=== PATIENT | male | born 1990 | race American Indian/Alaskan Native ===

== ENCOUNTER → 2017-08-01 | Outpatient (CLI) | payer OTHER ==
[~2017-08-01] MED LIST: (None)20 M1 PO; ALBU90OI INH; ALBU90OI6 INH; ALBU90OI61; ALBU90OI61 INH; Albuterol2.5 MG/0.5 INH; CIPR500 PO; CLARITIN10 MG PO; CRUTCH4 XX; DOXY100 PO; Duoneb 2.5-0.5 M3 ML INH; ERYT1OIN BOTHEYES; HYDACE5 PO; HYDHCL25 PO; IBUP800 PO; Klonopin0.5 MG PO; LORPSEER12; LORPSEER24 PO; MIRT15 PO; MONT10T PO; PERM5TC TOP; PRED10 PO; PRED20 PO; Percocet 5-3251 EACH PO; RXTRAM50 PO; Robaxin-750750 MG PO; TRAM50 PO; VENL25 PO; Ventolin Soln3 ML INH; Ventolin5 MG/1 ML INH; ZADITOR5 ML BOTHEYES
[2017-08-01 18:24] LABS: BASOPHILS ABSOLUTE AUTO 0.02 K/mm3 (0.00-0.23); BASOPHILS PERCENT AUTO 0 % (0-2); EOSINOPHILS ABSOLUTE AUTO 0.14 K/mm3 (0.00-0.68); EOSINOPHILS PERCENT AUTO 3 % (0-6); Hematocrit 46.7 % (37.0-53.0); Hemoglobin 16.1 g/dL (13.5-17.5); IMMATURE GRAN ABSOLUTE AUTO 0.01 K/mm3 (0.00-0.10); IMMATURE GRAN PERCENT AUTO 0 % (0-1); LYMPHOCYTES ABSOLUTE AUTO 1.86 K/mm3 (0.84-5.20); LYMPHOCYTES PERCENT AUTO 35 % (21-46); MONOCYTES ABSOLUTE AUTO 0.46 K/mm3 (0.16-1.47); MONOCYTES PERCENT AUTO 9 % (4-13); Mean Corpuscular HGB 30.4 pg (26.0-34.0); Mean Corpuscular HGB Conc 34.5 g/dL (31.5-36.5); Mean Corpuscular Volume 88 fL (80-100); Mean Platelet Volume 10.9 fL (9.1-12.4); NEUTROPHILS ABSOLUTE AUTO 2.81 K/mm3 (1.96-9.15); NEUTROPHILS PERCENT AUTO 53 % (41-73); Platelet Count 257 K/mm3 (150-400); RDW Coefficient Variation 12.9 % (11.7-14.2); RDW Standard Deviation 41.6 fL (35.1-46.3)
[2017-08-01 19:14] LABS: Alanine Aminotransfer (ALT/SGP 30 U/L (12-78); Albumin, Blood 4.4 g/dL (3.4-5.0); Albumin/Globulin Ratio 1.3 (0.8-1.8); Alk Phos 78 U/L (50-136); Anion Gap 9 mmol/L (6-16); Aspartate Aminotrans (AST/SGOT 25 U/L (12-37); Bilirubin, Total 0.5 mg/dL (0.1-1.0); Blood Urea Nitrogen 7 mg/dL (8-24); Bun/Creatinine Ratio 8.2 (12.0-20.0); CO2, Blood 23 mmol/L (21-32); Calcium, Blood 8.9 mg/dL (8.5-10.1); Chloride, Blood 107 mmol/L (98-108); Creatinine, Blood 0.85 mg/dL (0.60-1.20); Free Thyroxine 1.01 ng/dL (0.70-1.60); Globulin, Blood 3.3 g/dL (2.2-4.0); Glomerular Filtration Rate >60 (60-); Glucose, Blood 87 mg/dL (70-99); Potassium, Blood 4.6 mmol/L (3.5-5.5); Sodium, Blood 139 mmol/L (136-145); Total Protein, Blood 7.7 g/dL (6.4-8.2)
[2017-08-01 19:18] LABS: Triiodothyronine, Free 3.67 pg/mL (2.18-3.98)
== END ==
LOC: LAB 09:30 → LAB SHORT 09:30
PROVIDERS: Nurse Practitioner Family
DX: E55.9 Vitamin D deficiency, unspecified (principal); F41.9 Anxiety disorder, unspecified; R00.0 Tachycardia, unspecified; R61 Generalized hyperhidrosis
CPT/HCPCS: 80053; 84439; 84443; 84481; 85025

== ENCOUNTER → 2017-08-02 | Outpatient (CLI) | payer OTHER | END | disposition home or self-care (01) | LOC: LAB 09:00 → LAB SHORT 09:00 | DX: E55.9 Vitamin D deficiency, unspecified (principal) | CPT/HCPCS: 82306 ==

== ENCOUNTER 2017-08-14 11:37 | Emergency (ER) | payer OTHER ==
[~2017-08-14] VITALS: Ht 193 cm; Wt 81.7 kg
[~2017-08-14 11:37] MED LIST changes: -ALBU90OI61 INH; -CLARITIN10 MG PO; -CRUTCH4 XX; -ERYT1OIN BOTHEYES; -Klonopin0.5 MG PO; -MIRT15 PO; -MONT10T PO; -VENL25 PO; -ZADITOR5 ML BOTHEYES
[2017-08-14] MEDS ORDERED: ALBU90OI INH (13:26)
[2018-02-13] MEDS ORDERED: CRUTCH4 XX (14:30)
[2018-02-13] MEDS ORDERED: Percocet 5-3251 EACH PO (14:31)
== END 2017-08-14 13:40 | disposition home or self-care (01) ==
LOC: ER 11:37
DX: J45.901 Unspecified asthma with (acute) exacerbation (principal); F41.9 Anxiety disorder, unspecified; Z88.0 Allergy status to penicillin; Z88.5 Allergy status to narcotic agent; Z79.899 Other long term (current) drug therapy; J45.909 Unspecified asthma, uncomplicated; F17.200 Nicotine dependence, unspecified, uncomplicated
CPT/HCPCS: 71046; 94640; 96374; 99283; J2930

== ENCOUNTER 2017-11-14 13:41 | Emergency (ER) | payer OTHER ==
[~2017-11-14] VITALS: Ht 195.6 cm; Wt 80.3 kg
== END 2017-11-14 14:50 | disposition home or self-care (01) ==
LOC: ER 13:41
DX: F41.9 Anxiety disorder, unspecified (principal); Z88.0 Allergy status to penicillin; Z88.5 Allergy status to narcotic agent; Z79.899 Other long term (current) drug therapy; J45.909 Unspecified asthma, uncomplicated; Z87.891 Personal history of nicotine dependence
CPT/HCPCS: 99283

== ENCOUNTER 2017-12-10 11:49 | Observation (INO) | payer OTHER ==
[~2017-12-10] VITALS: Ht 193 cm; Wt 79.4 kg
[2017-12-10] MEDS ORDERED: VENL25 PO (13:40)
[2017-12-10] MEDS ORDERED: MONT10T PO (13:40)
[2017-12-10 14:23] LABS: BASOPHILS ABSOLUTE AUTO 0.06 K/mm3 (0.00-0.23); BASOPHILS PERCENT AUTO 1 % (0-2); EOSINOPHILS ABSOLUTE AUTO 0.06 K/mm3 (0.00-0.68); EOSINOPHILS PERCENT AUTO 1 % (0-6); Hematocrit 42.8 % (37.0-53.0); Hemoglobin 14.8 g/dL (13.5-17.5); IMMATURE GRAN ABSOLUTE AUTO 0.02 K/mm3 (0.00-0.10); IMMATURE GRAN PERCENT AUTO 0 % (0-1); LYMPHOCYTES ABSOLUTE AUTO 1.73 K/mm3 (0.84-5.20); LYMPHOCYTES PERCENT AUTO 18 % (21-46); MONOCYTES ABSOLUTE AUTO 0.63 K/mm3 (0.16-1.47); MONOCYTES PERCENT AUTO 7 % (4-13); Mean Corpuscular HGB Conc 34.6 g/dL (31.5-36.5); Mean Corpuscular Volume 87 fL (80-100); Mean Platelet Volume 9.5 fL (9.1-12.4); NEUTROPHILS PERCENT AUTO 74 % (41-73); Platelet Count 296 K/mm3 (150-400); RDW Coefficient Variation 12.2 % (11.7-14.2); RDW Standard Deviation 38.8 fL (35.1-46.3); Red Blood Cell Count 4.93 M/mm3 (4.30-5.90)
[2017-12-10 15:04] LABS: Alanine Aminotransfer (ALT/SGP 28 U/L (12-78); Albumin, Blood 4.4 g/dL (3.4-5.0); Albumin/Globulin Ratio 1.2 (0.8-1.8); Alk Phos 76 U/L (50-136); Anion Gap 9 mmol/L (6-16); Aspartate Aminotrans (AST/SGOT 26 U/L (12-37); Bilirubin, Total 0.5 mg/dL (0.1-1.0); Blood Urea Nitrogen 9 mg/dL (8-24); Bun/Creatinine Ratio 10.8 (12.0-20.0); CO2, Blood 27 mmol/L (21-32); Calcium, Blood 9.2 mg/dL (8.5-10.1); Chloride, Blood 106 mmol/L (98-108); Creatinine, Blood 0.84 mg/dL (0.60-1.20); Ethanol (Alcohol), Blood, Med <3 mg/dL; Globulin, Blood 3.7 g/dL (2.2-4.0); Glomerular Filtration Rate >60 (60-); Glucose, Blood 95 mg/dL (70-99); Potassium, Blood 3.6 mmol/L (3.5-5.5); Salicylate <1.7 mg/dL (2.8-20.0); Sodium, Blood 142 mmol/L (136-145); Total Protein, Blood 8.1 g/dL (6.4-8.2)
[2017-12-10 15:23] LABS: Acetaminophen, Random <2.0 ug/mL (10.0-30.0)
[2017-12-10] MEDS ORDERED: Klonopin0.5 MG PO (18:22)
[2017-12-10] MEDS ORDERED: MIRT15 PO (18:22)
[2017-12-10 19:15] LABS: Source, Urine Clean Catch
[2017-12-10 19:17] LABS: Bilirubin, Urine Neg (Neg); Blood, Urine Neg (Neg); Glucose Qualitative, Urine Neg (Neg); Ketones, Urine Neg (Neg); Leukocyte Esterase, Urine Neg (Neg); Nitrite, Urine Neg (Neg); Protein, Urine Neg (Neg); Urobilinogen, Urine NORM (Normal)
[2017-12-10 19:23] LABS: Appearance, Urine Hazy (Clear); Color, Urine Yellow (P-Yellow)
[2017-12-10 19:24] LABS: Amorphous Mod (0-Heavy); Bacteria Few /hpf; Red Blood Cells, Urine 0-2 /hpf (0-2); Squamous Epithelial Cells Not Seen /hpf (Few); White Blood Cells, Urine 0-2 /hpf (0-5)
[2017-12-10 19:31] LABS: U Amphetamine Screen Not Detected; U Barbituate Screen Not Detected; U Benzodiazapine Screen Not Detected; U Buprenorphine Screen Not Detected; U Cannabinoids Screen DETECTED; U Cocaine Screen Not Detected; U Methadone Screen Not Detected; U Methamphetamine Screen Not Detected; U Opiates Screen Not Detected; U Oxycodone Screen Not Detected; U Phencyclidine Screen Not Detected; U Propoxyphene Screen Not Detected
== END 2017-12-10 19:16 | disposition home or self-care (01) ==
LOC: ER 11:49 → EOR 11:50
PROVIDERS: Emergency Medicine
DX: T21.01XA Burn of unspecified degree of chest wall, initial encounter (principal); F32.9 Major depressive disorder, single episode, unspecified; F41.9 Anxiety disorder, unspecified; F17.210 Nicotine dependence, cigarettes, uncomplicated; J45.909 Unspecified asthma, uncomplicated; Z88.0 Allergy status to penicillin; Z79.899 Other long term (current) drug therapy; X97.XXXA Assault by smoke, fire and flames, initial encounter
CPT/HCPCS: 36415; 80053; 81001; 84443; 85025; 99285; G0378; G0480; Q3014

== ENCOUNTER 2017-12-20 21:58 | Emergency (ER) | payer OTHER ==
[~2017-12-20] VITALS: Ht 195.6 cm; Wt 80.3 kg
[~2017-12-20 21:58] MED LIST changes: +Klonopin0.5 MG PO; +MIRT15 PO; +MONT10T PO; +VENL25 PO
[2017-12-20] MEDS ORDERED: CLARITIN10 MG PO (23:10)
[2017-12-21] MEDS ORDERED: ZADITOR5 ML BOTHEYES (00:43)
[2017-12-21] MEDS ORDERED: ERYT1OIN BOTHEYES (00:43)
== END 2017-12-21 01:17 | disposition home or self-care (01) ==
LOC: ER 21:58
DX: H10.9 Unspecified conjunctivitis (principal); Z88.0 Allergy status to penicillin; Z88.5 Allergy status to narcotic agent; Z91.030 Bee allergy status; Z79.899 Other long term (current) drug therapy; J45.909 Unspecified asthma, uncomplicated; F32.9 Major depressive disorder, single episode, unspecified; F41.9 Anxiety disorder, unspecified; F17.210 Nicotine dependence, cigarettes, uncomplicated
CPT/HCPCS: 99283

== ENCOUNTER 2018-01-24 03:27 | Emergency (ER) | payer OTHER ==
[~2018-01-24] VITALS: Ht 195.6 cm; Wt 80.3 kg
[~2018-01-24 03:27] MED LIST changes: +CLARITIN10 MG PO; +ERYT1OIN BOTHEYES; +ZADITOR5 ML BOTHEYES
[2018-01-24] MEDS ORDERED: ALBU90OI61 INH (03:58)
== END 2018-01-24 04:14 | disposition home or self-care (01) ==
LOC: ER 03:27
DX: S06.0X9A Concussion with loss of consciousness of unspecified duration, initial encounter (principal); W22.8XXA Striking against or struck by other objects, initial encounter; F07.81 Postconcussional syndrome; Z88.0 Allergy status to penicillin; Z88.5 Allergy status to narcotic agent; Z91.030 Bee allergy status; Z79.899 Other long term (current) drug therapy; J45.909 Unspecified asthma, uncomplicated; F17.210 Nicotine dependence, cigarettes, uncomplicated
CPT/HCPCS: 99283

== ENCOUNTER 2018-12-05 22:26 | Emergency (ER) | payer OTHER ==
[~2018-12-05] VITALS: Ht 195.6 cm; Wt 79.4 kg
[~2018-12-05 22:26] MED LIST changes: +ALBU90OI61 INH; +CRUTCH4 XX
[2018-12-05] MEDS ORDERED: SERT50 PO (22:40)
[2018-12-05 23:58] LABS: Alanine Aminotransfer (ALT/SGP 44 U/L (12-78); Albumin, Blood 4.6 g/dL (3.4-5.0); Albumin/Globulin Ratio 1.4 (0.8-1.8); Alk Phos 73 U/L (50-136); Anion Gap 10 mmol/L (6-16); Aspartate Aminotrans (AST/SGOT 37 U/L (12-37); Bilirubin, Total 0.5 mg/dL (0.1-1.0); Blood Urea Nitrogen 9 mg/dL (8-24); Bun/Creatinine Ratio 10.2 (12.0-20.0); CO2, Blood 25 mmol/L (21-32); Chloride, Blood 107 mmol/L (98-108); Creatinine, Blood 0.89 mg/dL (0.60-1.20); Globulin, Blood 3.3 g/dL (2.2-4.0); Glomerular Filtration Rate >60 (60-); Glucose, Blood 90 mg/dL (70-99); Potassium, Blood 3.5 mmol/L (3.5-5.5); Sodium, Blood 142 mmol/L (136-145); Total Protein, Blood 7.9 g/dL (6.4-8.2); Troponin I <0.015 ng/mL (0.000-0.040)
== END 2018-12-06 00:31 | disposition home or self-care (01) ==
LOC: ER 22:26
PROVIDERS: Emergency Medicine
DX: R07.9 Chest pain, unspecified (principal); F32.9 Major depressive disorder, single episode, unspecified; F41.9 Anxiety disorder, unspecified; J45.909 Unspecified asthma, uncomplicated; F17.210 Nicotine dependence, cigarettes, uncomplicated; Z79.899 Other long term (current) drug therapy; Z88.0 Allergy status to penicillin; Z88.5 Allergy status to narcotic agent; Y04.2XXA Assault by strike against or bumped into by another person, initial encounter
CPT/HCPCS: 36415; 71046; 80053; 84484; 93005; 93010; 99285-25

== ENCOUNTER 2019-01-16 18:33 | Observation (INO) | payer OTHER ==
[~2019-01-16] VITALS: Ht 198.1 cm; Wt 77.1 kg
[~2019-01-16 18:33] MED LIST changes: +SERT50 PO
[2019-01-16] MEDS ORDERED: CLON.1 PO (19:14)
[2019-01-16 19:56] LABS: BASOPHILS ABSOLUTE AUTO 0.07 K/mm3 (0.00-0.23); BASOPHILS PERCENT AUTO 1 % (0-2); EOSINOPHILS ABSOLUTE AUTO 0.08 K/mm3 (0.00-0.68); EOSINOPHILS PERCENT AUTO 1 % (0-6); Hematocrit 42.7 % (37.0-53.0); Hemoglobin 14.4 g/dL (13.5-17.5); IMMATURE GRAN ABSOLUTE AUTO 0.06 K/mm3 (0.00-0.10); IMMATURE GRAN PERCENT AUTO 1 % (0-1); LYMPHOCYTES ABSOLUTE AUTO 1.74 K/mm3 (0.84-5.20); LYMPHOCYTES PERCENT AUTO 14 % (21-46); MONOCYTES PERCENT AUTO 6 % (4-13); Mean Corpuscular HGB 29.9 pg (26.0-34.0); Mean Corpuscular HGB Conc 33.7 g/dL (31.5-36.5); Mean Corpuscular Volume 89 fL (80-100); Mean Platelet Volume 9.1 fL (9.1-12.4); NEUTROPHILS ABSOLUTE AUTO 10.14 K/mm3 (1.96-9.15); NEUTROPHILS PERCENT AUTO 79 % (41-73); Platelet Count 524 K/mm3 (150-400); RDW Coefficient Variation 12.1 % (11.7-14.2); RDW Standard Deviation 39.2 fL (35.1-46.3); Red Blood Cell Count 4.82 M/mm3 (4.30-5.90); White Blood Cell Count 12.89 K/mm3 (4.00-11.30)
[2019-01-16 20:23] LABS: Alanine Aminotransfer (ALT/SGP 34 U/L (12-78); Albumin, Blood 3.9 g/dL (3.4-5.0); Albumin/Globulin Ratio 0.9 (0.8-1.8); Alk Phos 86 U/L (50-136); Anion Gap 8 mmol/L (6-16); Aspartate Aminotrans (AST/SGOT 25 U/L (12-37); Bilirubin, Total 0.4 mg/dL (0.1-1.0); Blood Urea Nitrogen 11 mg/dL (8-24); CO2, Blood 28 mmol/L (21-32); Calcium, Blood 9.3 mg/dL (8.5-10.1); Chloride, Blood 104 mmol/L (98-108); Creatinine, Blood 0.91 mg/dL (0.60-1.20); Ethanol (Alcohol), Blood, Med <3 mg/dL; Free Thyroxine 1.03 ng/dL (0.70-1.60); Globulin, Blood 4.2 g/dL (2.2-4.0); Glomerular Filtration Rate >60 (60-); Glucose, Blood 99 mg/dL (70-99); Potassium, Blood 3.9 mmol/L (3.5-5.5); Salicylate 2.2 mg/dL (2.8-20.0); Sodium, Blood 140 mmol/L (136-145); Total Protein, Blood 8.1 g/dL (6.4-8.2)
[2019-01-16 20:24] LABS: Source, Urine Clean Catch
[2019-01-16 20:29] LABS: Bilirubin, Urine Neg (Neg); Blood, Urine Neg (Neg); Glucose Qualitative, Urine Neg (Neg); Ketones, Urine Neg (Neg); Leukocyte Esterase, Urine Neg (Neg); Nitrite, Urine Neg (Neg); Protein, Urine Neg (Neg); Urobilinogen, Urine NORM (Normal)
[2019-01-16 20:34] LABS: Acetaminophen, Random <2.0 ug/mL (10.0-30.0)
[2019-01-16 20:44] LABS: Appearance, Urine Clear (Clear); Color, Urine Yellow (P-Yellow); U Amphetamine Screen Not Detected; U Barbituate Screen Not Detected; U Benzodiazapine Screen Not Detected; U Buprenorphine Screen Not Detected; U Cannabinoids Screen DETECTED; U Cocaine Screen Not Detected; U Methadone Screen Not Detected; U Methamphetamine Screen Not Detected; U Opiates Screen Not Detected; U Oxycodone Screen Not Detected; U Phencyclidine Screen Not Detected; U Propoxyphene Screen Not Detected
[2019-01-17] MEDS ORDERED: HYDPAM25 PO (12:02)
[2019-01-17] MEDS ORDERED: Bupropion Xl150 MG PO (12:03)
[2019-01-21] MEDS ORDERED: QUET100 PO (20:33)
== END 2019-01-21 20:56 | disposition home or self-care (01) ==
LOC: ER 18:33 → EOR 18:34
PROVIDERS: Physician Assistant; ADMIT Emergency Medicine
DX: F32.3 Major depressive disorder, single episode, severe with psychotic features (principal); F41.9 Anxiety disorder, unspecified; J45.909 Unspecified asthma, uncomplicated; F17.210 Nicotine dependence, cigarettes, uncomplicated; Z91.5 Personal history of self-harm; Z79.899 Other long term (current) drug therapy
CPT/HCPCS: 80053; 81003; 84439; 84443; 85025; 99285; G0378; G0480; Q3014

== ENCOUNTER 2020-08-15 07:49 | Emergency (ER) | payer OTHER ==
[~2020-08-15] VITALS: Ht 195.6 cm; Wt 81.7 kg
[~2020-08-15 07:49] MED LIST changes: +Bupropion Xl150 MG PO; +CLON.1 PO; +HYDPAM25 PO; +QUET100 PO
[2020-08-15] MEDS ORDERED: OXYC5 PO (08:34)
[2020-08-15] MEDS ORDERED: AMOCLA875 PO (08:34)
[2020-08-16] MEDS ORDERED: Cleocin HCl300 MG PO (03:41)
== END 2020-08-15 08:48 | disposition home or self-care (01) ==
LOC: ER 07:49
DX: K04.7 Periapical abscess without sinus (principal); F17.210 Nicotine dependence, cigarettes, uncomplicated
CPT/HCPCS: 99282

== ENCOUNTER 2020-08-16 02:46 | Emergency (ER) | payer OTHER ==
[~2020-08-16] VITALS: Ht 195.6 cm; Wt 79.4 kg
[~2020-08-16 02:46] MED LIST changes: +AMOCLA875 PO; +OXYC5 PO
[2020-08-16] MEDS ORDERED: Cleocin HCl300 MG PO (03:41)
== END 2020-08-16 04:07 | disposition home or self-care (01) ==
LOC: ER 02:46
DX: K04.7 Periapical abscess without sinus (principal); J45.909 Unspecified asthma, uncomplicated; F17.210 Nicotine dependence, cigarettes, uncomplicated; Z88.5 Allergy status to narcotic agent; Z91.030 Bee allergy status; Z79.899 Other long term (current) drug therapy
CPT/HCPCS: 99282

== ENCOUNTER 2020-10-18 15:43 | Emergency (ER) | payer OTHER ==
[~2020-10-18] VITALS: Ht 195.6 cm; Wt 79.4 kg
[~2020-10-18 15:43] MED LIST changes: +Cleocin HCl300 MG PO
[2020-10-18] MEDS ORDERED: LIDO700A20 TOP (20:35)
[2020-10-18] MEDS ORDERED: CYCL10 PO (20:35)
== END 2020-10-18 20:48 | disposition home or self-care (01) ==
LOC: ER 15:43
DX: M54.6 Pain in thoracic spine (principal); J45.909 Unspecified asthma, uncomplicated; F17.210 Nicotine dependence, cigarettes, uncomplicated; W22.8XXA Striking against or struck by other objects, initial encounter; Y92.89 Other specified places as the place of occurrence of the external cause; Y99.0 Civilian activity done for income or pay
CPT/HCPCS: 71046; 71100; 72070; 96372; 99283-25; A9270; J1885

== ENCOUNTER 2021-01-03 18:13 | Emergency (ER) | payer OTHER ==
[~2021-01-03] VITALS: Ht 195.6 cm; Wt 79.4 kg
[~2021-01-03 18:13] MED LIST changes: +CYCL10 PO; +LIDO700A20 TOP
[2021-01-03] MEDS ORDERED: NEOPOLHCSU LEFTEAR (20:38)
[2021-01-03] MEDS ORDERED: Amoxicillin500 M1 PO (20:38)
== END 2021-01-03 21:08 | disposition home or self-care (01) ==
LOC: ER 18:13
DX: H60.92 Unspecified otitis externa, left ear (principal); F17.210 Nicotine dependence, cigarettes, uncomplicated; J45.909 Unspecified asthma, uncomplicated
CPT/HCPCS: 99282

== ENCOUNTER 2021-03-21 14:37 | Emergency (ER) | payer OTHER ==
[~2021-03-21] VITALS: Ht 195.6 cm; Wt 79.4 kg
[~2021-03-21 14:37] MED LIST changes: +Amoxicillin500 M1 PO; +NEOPOLHCSU LEFTEAR
[2021-03-21] MEDS ORDERED: Amoxicillin500 MG PO (14:48)
== END 2021-03-21 14:53 | disposition home or self-care (01) ==
LOC: ER 14:37
DX: K04.7 Periapical abscess without sinus (principal); F17.210 Nicotine dependence, cigarettes, uncomplicated; Z88.5 Allergy status to narcotic agent; Z91.030 Bee allergy status
CPT/HCPCS: 99282

== ENCOUNTER 2021-04-11 00:41 | Emergency (ER) | payer OTHER ==
[~2021-04-11] VITALS: Ht 195.6 cm; Wt 79.4 kg
[~2021-04-11 00:41] MED LIST changes: +Amoxicillin500 MG PO
[2021-04-11] MEDS ORDERED: Cleocin HCl300 MG PO (01:09)
== END 2021-04-11 01:30 | disposition home or self-care (01) ==
LOC: ER 00:41
DX: K04.7 Periapical abscess without sinus (principal); Z88.5 Allergy status to narcotic agent; Z88.6 Allergy status to analgesic agent; Z91.030 Bee allergy status; J45.909 Unspecified asthma, uncomplicated; F32.9 Major depressive disorder, single episode, unspecified; F41.9 Anxiety disorder, unspecified; F17.210 Nicotine dependence, cigarettes, uncomplicated; Z79.899 Other long term (current) drug therapy
CPT/HCPCS: 99282; A9270

== ENCOUNTER 2021-05-31 08:09 | Emergency (ER) | payer OTHER ==
[~2021-05-31] VITALS: Ht 195.6 cm; Wt 79.4 kg
[2021-05-31] MEDS ORDERED: Percocet 5-3251 EACH PO (11:03)
[2021-05-31] MEDS ORDERED: Robaxin750 MG PO (11:03)
[2021-05-31] MEDS ORDERED: IBUP800 PO (11:03)
== END 2021-05-31 11:33 | disposition home or self-care (01) ==
LOC: ER 08:09
DX: M54.50 Low back pain, unspecified (principal); W22.8XXA Striking against or struck by other objects, initial encounter; Z88.5 Allergy status to narcotic agent; Z91.030 Bee allergy status; J45.909 Unspecified asthma, uncomplicated; F17.210 Nicotine dependence, cigarettes, uncomplicated
CPT/HCPCS: 72100; 96372; 99283-25; A9270; J1885